=== PATIENT | female | born 1950 | race Caucasian/White ===

== ENCOUNTER 2016-11-02 06:17 | Emergency (ER) | payer MEDICARE, OTHER ==
[~2016-11-02] VITALS: Ht 170.2 cm; Wt 86.5 kg
[~2016-11-02 06:17] MED LIST: ATOR20TA PO; Aspirin-Expunged Drug, Do Not Renew! PO; PANT40TA3 PO
[2016-11-02 06:22] VITALS: BP 174/89; PULSE 70; RESP 18; O2SAT 100
--- NOTE | 2016-11-02 06:29 | ED.REPORT ---
HPI-Chest Pain 40 and Over Date of Service Nov 02, 2016 ED Provider: Dr. Danny Park 65 year old female with a hx of breast cancer s/p bilateral radical mastectomy and GERD presents to the ED who presents to the ED with substernal chest pain onset 4 hours ago. She woke up with belching and gas build up in her stomach. Pain is rated at 2/10 and radiates into the left arm. She tried Tums which did not help to reduce symptoms. She has had 3 episodes since 0 each lasting about 1 minute long. She has had 7 different visits for atypical chest pain in the past. She frequently experiences stomach gas, but it is not accompanied by chest pain. Associated symptoms include diaphoresis and nausea. She had a stress test and an echo in 2015 that were both normal. She is not currently experiencing pain at the ED. She takes Lipitor and Protonix in the evening. Nursing Notes Stated Complaint: CHEST PAIN Chief Complaint: Chest Pain Nursing Notes Reviewed: Yes Allergies: Coded Allergies: Penicillins (Verified Allergy, Severe, 07/07/16) Scheduled ([Aspirin-Expunged Drug, Do Not Renew!]) 325 MG TABLET 325 MG PO DAILY Atorvastatin (Lipitor) 20 Mg Tablet 20 MG PO DAILY Pantoprazole DR (Pantoprazole DR) 40 Mg Tablet.dr 40 MG PO DAILYAC General Time Seen by MD: 06:28 Chief Complaint Chest pain Hx Obtained From: Patient Arrived By: Walk-in Sudden in Onset?: Yes Onset Occurred: 1 - 4 hours ago Context of Onset: Sleeping Symptom Duration: Since onset Location: : Chest left Quality: Burning, Painful Radiation: : Arm left Severity: Current: No pain currently Severity: Maximum: Mild Recent Healthcare: Recent doctor visit Similar Sx Previous: Yes Past Medical History Past Medical History Notes: Oncologist: Dr. Arreola Physician: Dr. Shin and Dr. Meza echocardiogram and stress test March 05, which were both normal. Extensive workup for atypical chest pain, mutliple ED visits. Extensive GI workup, including colonoscopy. Last nuclear medicine scan was in 2003 and was normal Past Medical History Multiple ED visits for CP with no defined etiology (04/22/2015, 03/05/2015, 09/24/2014, 08/16/2014, 03/16/2014, October 2013) Anxiety Pt denies history of PE or DVT (prior CT Angios) Breast cancer Reports: Cancer, GERD Past Surgical History Mastectomy on left and right, with breast reconstruction. abdominal wall surgery. Reports: Hysterectomy Family History Mother (56) and father (66) from cancer Smoking History Former Smoker Social History Alcohol Use: Denies alcohol use Other Social History: Good social support, , Local resident Ambulatory Status Independent Review of Systems Cardiovascular: Reports: Chest pain GI: Reports: Nausea Skin: Reports Diaphoresis Complete sys rev & neg: except as marked. Physical Exam Initial Vital Signs Vital Signs (First) Date Time Temp Pulse Resp B/P Pulse Ox O2 Delivery O2 Flow Rate FiO2 11/02/16 06:22 36.0 70 18 174/89 100 11/02/16 08:34 Room Air Initial VS: Reviewed Head / Eyes: Atraumatic, Normocephalic, PERRL ENT: Mucous membranes moist, Conjunctiva normal Extremities: Vascular intact, Neuro intact, No swelling, No tenderness Skin: Warm, Dry Neurologic: Alert, Oriented, Nonfocal Psychiatric: Mood/affect normal, Behavior normal General/Constitutional: Awake, Alert, Cooperative, Not toxic appearing Respiratory / Chest: Atraumatic, Breath sounds NL, Breath sounds = bilat, No respiratory distress, No rales, No rhonchi, No wheezing Cardiovascular: Heart rate NL, Regular rhythm, Heart sounds NL, No gallop, No murmurs, No rubs Abdomen: Atraumatic, Soft, Non-tender, No guarding, No rebound, BS normoactive Interpretation & Diagnostics Lab Results Interpretation Result Diagram: 11/02/16 0645 11/02/16 0645 Test 11/02/16 06:43 11/02/16 06:45 Hold Mane Top Tube Received (Received) White Blood Count 6.2th/mm3 (3.8-10.1) Red Blood Count 4.83mil/mm3 (3.90-5.20) Hemoglobin 14.5g/dL (12.0-15.6) Hematocrit 44.5% (35.0-46.0) Mean Corpuscular Volume 92.1fL (81-100) Mean Corpuscular Hemoglobin 30.0pg (27.0-35.0) Mean Corpuscular Hemoglobin Concent 32.6% (32.0-37.0) Red Cell Distribution Width 13.8% (12.3-15.4) Platelet Count 177bil/L (150-400) Neutrophils (%) (Auto) 65.1% (40-74) Lymphocytes (%) (Auto) 27.0% (14-46) Monocytes (%) (Auto) 6.1% (4-12) Eosinophils (%) (Auto) 1.0% (0-5) Basophils (%) (Auto) 0.6% (0-3) Sodium Level 143mEq/L (134-144) Potassium Level 4.2mEq/L (3.5-5.2) Chloride Level 104mEq/L (97-108) Carbon Dioxide Level 25mmol/L (18-29) Blood Urea Nitrogen 11mg/dL (8-27) Creatinine 0.80mg/dL (0.57-1.00) Estimat Glomerular Filtration Rate 103mL/min (>59) Glucose Level 109mg/dL (60-99) Calcium Level 10.2mg/dL (8.5-10.1) Magnesium Level 2.2mg/dL (1.6-2.6) Total Bilirubin 0.4mg/dL (0.0-1.2) Aspartate Amino Transf (AST/SGOT) 26U/L (0-50) Alanine Aminotransferase (ALT/SGPT) 33U/L (0-32) Alkaline Phosphatase 92U/L (25-165) Troponin T 0.010ug/L (0.0-0.011) Total Protein 7.4g/dL (6.4-8.4) Albumin 4.4g/dL (3.4-5.0) ECG Interpretation Time: 06:33 Interpreted by: ED physician Normal ECG Interpretation: Normal ECG w/ rate of... (64), No change from prior ECGs X-Ray Chest Interpretation Chest Xray Interpretation: IMPRESSION: No acute cardiopulmonary disease. Dictated by: Yash CODY Interpreted: Anastacia Chou MD on 11/02/2016 at 9:09 Transcribed by: CRISTINA on 11/02/2016 at 9:09 View: Portable Interpretation / Wet Read by: Interpret - Radiologist Re-Eval/Medical Decision Med Decision/Clinical Course Overall not consistent with acute coronary syndrome or other life-threatening pathology. Symptoms have not returned, she will be discharged with strict return and follow-up precautions Counseled Regarding: Diagnosis, Lab results, Need for follow-up, When/why to return to ED Discharge & Departure Primary Impression: Chest pain Chest pain type: unspecified Qualified Code: R07.9 - Chest pain, unspecified Disposition: Home Discharge Condition All VS Reviewed: Yes Condition: Stable Additional Instructions: Your imaging and blood tests do not show any dangerous causes for your symptoms. You can try Tums or other antacids at home. Follow up with your primary care physician as needed. Please review the patient handout describing symptoms of severe heart disease. Return to the Emergency Department for any new or worsening symptoms. Referrals: Lydia Garcia MD (PCP) Scribe Attestation Portion of this note were transcribed by Patti Herrera. I, Dr. Park, personally performed the history, physical exam, and medical decision-making: I reviewed and confirmed the accuracy for the information in the transcribed note. Signed by: janneth Ragsdale, 11/02/16 0800 copies to: Lydia Garcia MD, Timothy S DO Nov 02, 2016 06:28 Patti Herrera Nov 02, 2016 06:39 Tray Cain MD Nov 02, 2016 08:19
[2016-11-02 06:56] LABS: BASOPHILS % (AUTO) 0.6 % (0-3); MONOCYTES % (AUTO) 6.1 % (4-12); Mean Corpuscular Volume 92.1 fL (81-100); NEUTROPHILS % (AUTO) 65.1 % (40-74); Platelet Count 177 bil/L (150-400)
[2016-11-02] MEDS ORDERED: LidocaineVisc 2%:Antacid 1:1 10 mL Syringe PO ONE (07:05)
[2016-11-02 07:27] LABS: TROPONIN T 0.01 ug/L (0.0-0.011)
[2016-11-02 07:38] LABS: Magnesium 2.2 mg/dL (1.6-2.6)
[2016-11-02 08:34] VITALS: BP 115/65; PULSE 58; RESP 16; O2SAT 99
--- NOTE | 2016-11-02 09:10 | DRSVH ---
PROCEDURE: X-RAY CHEST ONE VIEW, PORTABLE ([id number]) INDICATIONS: CP TECHNIQUE: One view of the chest was acquired. COMPARISON: None. FINDINGS: Surgical changes and devices: Right hilar surgical clips. Lungs and pleura: No pleural effusions or pneumothorax. Lungs are clear. Mediastinum: Mediastinal contours appear normal. Heart size is normal. Bones and chest wall: No suspicious bony lesions. Overlying soft tissues appear unremarkable. IMPRESSION: No acute cardiopulmonary disease. Dictated by: Yash Landon [facility] Interpreted: Anastacia Chou MD on 11/02/2016 at 9:09 Transcribed by: CRISTINA on 11/02/2016 at 9:09 Approved by: Anastacia Chou MD, PhD on 11/02/2016 at 17:18
[2016-11-19] MEDS ORDERED: LIP40 PO (14:05)
[2016-11-19] MEDS ORDERED: ASPI-973 PO (14:05)
== END 2016-11-02 08:35 | disposition home or self-care (01) ==
LOC: SED 06:17
DX: R07.9 Chest pain, unspecified (principal); R11.0 Nausea; R61 Generalized hyperhidrosis; K21.0 Gastro-esophageal reflux disease with esophagitis; Z85.3 Personal history of malignant neoplasm of breast; Z90.13 Acquired absence of bilateral breasts and nipples; Z87.891 Personal history of nicotine dependence; Z79.82 Long term (current) use of aspirin; Z88.0 Allergy status to penicillin